=== PATIENT | male | born 1960 | race Caucasian/White ===

== ENCOUNTER 2025-08-16 12:01 | Emergency (ER) | payer BC, SELFPAY ==
[2025-08-16] VITALS (15 sets, daily range): BP systolic 155–191; BP diastolic 78–98; PULSE 57–87; RESP 14–26; TEMP 36.6; O2SAT 84–100; BMI 25.0
--- NOTE | 2025-08-16 12:07 | ED.FALL ---
HPI - Fall General Chief Complaint: Trauma Stated Complaint: Confused Time Seen by Provider: 08/16/25 12:02 History of Present Illness HPI Narrative: Patient is a 65-year-old male does drink alcohol says he only drinks 2 beers a day found today confused by neighbors. Reports that they just moved to a new house neighbors found him walking about with the obvious head injury over his left eyebrow. Patient is confused he does know his name and how old he is. He remembers his 's name. He can not remember what happened how he fell anything about the day before. Moving all extremities. No known antiplatelet or anticoagulation medication. However we do not have any record of him. Last known well unknown. Upon further questioning patient reports that he and his just moved here from [facility]. They really only lived in the state for 5 days. is out at [facility], and on her way. Related Data Allergies Allergy/AdvReac Type Severity Reaction Status Date / Time No Known Drug Allergies Allergy Verified 08/16/25 12:12 Exam Initial Vital Signs Initial Vital Signs: Vital Signs Temperature 97.8 F 08/16/25 12:01 Pulse Rate 59 L 08/16/25 12:01 Respiratory Rate 14 08/16/25 12:01 Blood Pressure 183/98 H 08/16/25 12:01 Pulse Oximetry 99 08/16/25 12:01 Oxygen Delivery Method Room Air 08/16/25 12:01 GENERAL: Alert confused 65-year-old male HEENT: Head left superior I laceration NECK: No cervical tenderness no step-off CARDIOVASCULAR: Regular rate and rhythm without murmurs, rubs or gallops. RESPIRATORY: Breath sounds equal bilaterally, no wheezes rales or rhonchi. ABDOMEN: Soft, nontender. Normoactive bowel sounds all 4 quadrants. No guarding or rebound. EXTREMITIES: Normal range of motion, no clubbing or edema. Neurovascularly intact NEUROLOGICAL: Alert and oriented x4.Normal gait and speech. Cranial nerves II through XII grossly intact. Napper Runner strength equal bilaterally no peripheral loss SKIN: Warm, dry, no laceration, no petechiae, no rashes or lesions. Procedures Laceration Repair Laceration 1: Site: face Side (If applicable): left Size (cm): 8 Description: stellate Depth: simple, single layer Local Anesthetic: lidocaine 1% and with epi Amount of anesthesia used (mL): 5 Pre-repair: wound explored, irrigated extensively and deep structures intact Skin layer closed with: nylon Skin layer suture size: 4-0 Number of sutures: 7 Technique: simple, interrupted Scores GCS Anny coma scale eye opening: Spontaneous Anny coma scale verbal response: Confused [place]ow coma scale motor response: Obey commands Anny coma scale total score: 14 NIH Stroke Scale Level of Conciousness: Alert, keenly responsive Ask month/age: Answers neither question correctly, aphasic, stuporous, coma Open/close eyes, close hand: Performs both tasks correctly Best gaze horizontal: Normal Visual eng: No visual loss Facial palsy: Normal symetrical movement Left arm drift: No drift for full 10 sec Right arm drift: No drift for full 10 sec Left leg drift: No drift for full 5 sec Right leg drift: No drift for full 5 sec Limb ataxia: Absent Sensory on face/arms/legs: Normal, no sensory loss Best language: No aphasia, normal Dysarthria: Normal Extinction or inattention: No abnormality Total NIH Stroke scale score: 2 Course Orders Ordered: ED Orders 08/16/25 12:10 Acetaminophen Stat Complete Blood Count AUTO DIFF Stat Comprehensive Metabolic Panel Stat Ethanol (ETOH) Stat Lactate (Lactic Acid) Stat PTT Partial Thromboplastin Koffi Stat Prothrombin Time INR Stat Salicylate Stat Troponin & CK Cardiac Panel Stat 08/16/25 12:15 Covid-19 + FLU A/B + RSV - PCR Stat 08/16/25 12:16 CT angio head and neck Stat CT head/brain wo con Stat EKG-12 Lead Stat 08/16/25 12:35 Ammonia (NH3) Stat 08/16/25 12:49 XR shoulder LT 2+ views Stat 08/16/25 13:25 Urine Drug Screen, Rapid Stat Discontinued Medications Diphtheria/Tetanus/Acell Pertussis (Tet,Diph,Pertuss(Acell),Vac/Pf 0.5 Ml Syringe) 0.5 ml IM .ONCE ONE Stop: 08/16/25 12:49 Last Admin: 08/16/25 12:57 Dose: 0.5 ml Documented By: Labetalol HCl (Labetalol 20 Mg/4 Ml Syringe) 10 mg IV STAT ONE Stop: 08/16/25 13:16 Last Admin: 08/16/25 13:12 Dose: 10 mg Documented By: Labetalol HCl (Labetalol 20 Mg/4 Ml Syringe) 10 mg IV NOW ONE Stop: 08/16/25 13:11 Labetalol HCl (Labetalol 20 Mg/4 Ml Syringe) 10 mg IV NOW ONE Stop: 08/16/25 13:42 Last Admin: 08/16/25 13:42 Dose: 10 mg Documented By: Lidocaine/Epinephrine (Lidocaine 1% W/Epi 10ml) 1 ml SUBCUT NOW ONE Stop: 08/16/25 12:49 Non-Formulary Medication (Labatelol) 10 mg IV STAT [facility] Vital Signs Vital signs: Vital Signs - 8 hr 08/16/25 12:01 08/16/25 12:06 08/16/25 12:06 Temperature 97.8 F Pulse Rate 59 L 61 Respiratory Rate 14 20 Blood Pressure 183/98 H 183/98 H Pulse Oximetry 99 99 Oxygen Delivery Method Room Air 08/16/25 12:33 08/16/25 13:00 08/16/25 13:05 Temperature Pulse Rate 57 L 62 Respiratory Rate 26 H Blood Pressure 191/91 H Pulse Oximetry 84 L 98 Oxygen Delivery Method 08/16/25 13:05 08/16/25 13:10 08/16/25 13:10 Temperature Pulse Rate 65 67 Respiratory Rate 20 17 Blood Pressure 185/88 H Pulse Oximetry 100 94 Oxygen Delivery Method 08/16/25 13:12 08/16/25 13:21 08/16/25 13:21 Temperature Pulse Rate 87 61 Respiratory Rate Blood Pressure 191/85 H 173/78 H Pulse Oximetry 84 L Oxygen Delivery Method 08/16/25 13:25 08/16/25 13:25 08/16/25 13:28 Temperature Pulse Rate 66 Respiratory Rate 14 Blood Pressure 177/88 H 176/83 H Pulse Oximetry Oxygen Delivery Method 08/16/25 13:28 08/16/25 13:30 08/16/25 13:31 Temperature Pulse Rate 62 64 74 Respiratory Rate 17 19 14 Blood Pressure Pulse Oximetry Oxygen Delivery Method 08/16/25 13:31 08/16/25 13:35 08/16/25 13:35 Temperature Pulse Rate 64 Respiratory Rate 25 H Blood Pressure 172/82 H 155/78 H Pulse Oximetry 98 Oxygen Delivery Method Room Air 08/16/25 13:41 08/16/25 13:42 Temperature Pulse Rate 69 86 Respiratory Rate Blood Pressure 177/85 H 178/85 H Pulse Oximetry Oxygen Delivery Method MDM - Fall Lab Data 08/16/25 12:10 08/16/25 12:10 Labs: Lab Results 08/16/25 08/16/25 08/16/25 Range/Units 12:10 12:15 12:35 WBC 6.1 (4.5-11.0) X10^3/uL RBC 4.30 L (4.5-5.9) X10^6/uL Hgb 14.1 (13.5-17.5) g/dL Hct 41.5 (41-53) % MCV 96.5 (80-100) fL MCH 32.7 (26-34) PG MCHC 33.9 (30-36) % RDW 14.0 (11.6-14.8) % Plt Count 177 (150-400) X10^3/uL Neut % (Auto) 69.7 (50-75) % Lymph % (Auto) 20.0 L (25-40) % S[place]ent % (Auto) 7.1 (3-14) % Eos % (Auto) 2.7 (2-4) % Baso % (Auto) 0.5 (0-2) % Neut # (Auto) 4200 (8761-3164) /uL Lymph # (Auto) 1200 (6345-9274) /uL Sargent # (Auto) 400 (0-900) /uL Eos # (Auto) 200 (0-450) /uL Baso # (Auto) 0 (0-100) /uL PT 11.3 (9.4-12.5) SECONDS INR 1.0 (0.9-1.3) APTT 28 (25.1-36.5) SECONDS Sodium 137 (137-145) mmol/L Potassium 3.6 (3.4-5.1) mmol/L Chloride 104 (98-107) mmol/L Carbon Dioxide 26 (22-32) mmol/L BUN 23 H (9-20) mg/dL Creatinine 0.82 (0.66-1.25) mg/dL Estimated GFR > 60 (>60) mL/min BUN/Creatinine Ratio 28.0 H (6-22) Glucose 145 H (70-99) mg/dL Lactate 0.8 (0.7-2.1) mmol/L Calcium 8.8 (8.4-10.2) mg/dL Total Bilirubin 1.1 (0.2-1.3) mg/dL AST 32 (17-59) IU/L ALT 19 (<50) IU/L Alkaline Phosphatase 63 (38-126) U/L Ammonia < 9 L (9-30) umol/L Total Creatine Kinase 114 (55-170) U/L Troponin I < 0.012 (0.01-0.034) ng/mL Total Protein 7.5 (6.3-8.2) g/dL Albumin 4.5 (3.5-5.0) g/dL Globulin 3.0 (1.7-4.1) g/dL Albumin/Globulin Ratio 1.5 (1.0-2.8) Salicylates < 1.0 (<20) mg/dL U Opiates 300ng/mL cut (Negative) Ur Oxycodone Screen (Negative) Urine Methadone Screen (Negative) Acetaminophen < 10 (10-30) ug/mL Ur Barbiturates Screen (Negative) U Tricyclic Antidepress (Negative) Ur Phencyclidine Scrn (Negative) Ur Amphetamines Screen (Negative) U Methamphetamines Scrn (Negative) Ur MDMA Scrn (Ecstasy) (Negative) U Benzodiazepines Scrn (Negative) Urine Cocaine Screen (Negative) U Marijuana (THC) Screen (Negative) Urine pH (Normal) Urine Specific [place] (Normal) Ethyl Alcohol < 10 (<10) mg/dL Ur Creatinine (Normal) SARS-CoV-2 (PCR) Negative (Negative) Influenza A (RT-PCR) Flu a negative (NEGATIVE) Influenza B (RT-PCR) Flu b negative (NEGATIVE) RSV (PCR) Negative (Negative) 08/16/25 Range/Units 13:25 WBC (4.5-11.0) X10^3/uL RBC (4.5-5.9) X10^6/uL Hgb (13.5-17.5) g/dL Hct (41-53) % MCV (80-100) fL MCH (26-34) PG MCHC (30-36) % RDW (11.6-14.8) % Plt Count (150-400) X10^3/uL Neut % (Auto) (50-75) % Lymph % (Auto) (25-40) % Sargent % (Auto) (3-14) % Eos % (Auto) (2-4) % Baso % (Auto) (0-2) % Neut # (Auto) (6189-0363) /uL Lymph # (Auto) (7112-9369) /uL Sargent # (Auto) (0-900) /uL Eos # (Auto) (0-450) /uL Baso # (Auto) (0-100) /uL PT (9.4-12.5) SECONDS INR (0.9-1.3) APTT (25.1-36.5) SECONDS Sodium (137-145) mmol/L Potassium (3.4-5.1) mmol/L Chloride (98-107) mmol/L Carbon Dioxide (22-32) mmol/L BUN (9-20) mg/dL Creatinine (0.66-1.25) mg/dL Estimated GFR (>60) mL/min BUN/Creatinine Ratio (6-22) Glucose (70-99) mg/dL Lactate (0.7-2.1) mmol/L Calcium (8.4-10.2) mg/dL Total Bilirubin (0.2-1.3) mg/dL AST (17-59) IU/L ALT (<50) IU/L Alkaline Phosphatase (38-126) U/L Ammonia (9-30) umol/L Total Creatine Kinase (55-170) U/L Troponin I (0.01-0.034) ng/mL Total Protein (6.3-8.2) g/dL Albumin (3.5-5.0) g/dL Globulin (1.7-4.1) g/dL Albumin/Globulin Ratio (1.0-2.8) Salicylates (<20) mg/dL U Opiates 300ng/mL cut Negative (Negative) Ur Oxycodone Screen Negative (Negative) Urine Methadone Screen Negative (Negative) Acetaminophen (10-30) ug/mL Ur Barbiturates Screen Negative (Negative) U Tricyclic Antidepress Negative (Negative) Ur Phencyclidine Scrn Negative (Negative) Ur Amphetamines Screen Negative (Negative) U Methamphetamines Scrn Negative (Negative) Ur MDMA Scrn (Ecstasy) Negative (Negative) U Benzodiazepines Scrn Negative (Negative) Urine Cocaine Screen Negative (Negative) U Marijuana (THC) Screen Negative (Negative) Urine pH Normal (Normal) Urine Specific [place] Normal (Normal) Ethyl Alcohol (<10) mg/dL Ur Creatinine Normal (Normal) SARS-CoV-2 (PCR) (Negative) Influenza A (RT-PCR) (NEGATIVE) Influenza B (RT-PCR) (NEGATIVE) RSV (PCR) (Negative) Imaging Data CT scan - head: Radiologist's Impression: PROCEDURE: CT HEAD/BRAIN WO CON INDICATIONS: fall TECHNIQUE: Noncontrast 4.5 mm thick angled axial sections acquired from the foramen magnum to the vertex, with coronal and sagittal reformats. For radiation dose reduction, the following was used: automated exposure control, adjustment of mA and/or kV according to patient size. COMPARISON: [facility], CT, CT ANGIO HEAD AND NECK, 08/16/2025, 12:24. FINDINGS: Image quality: Diagnostic. CSF spaces: Basal cisterns are patent. No extra-axial fluid collections. Ventricles are normal in size and shape. Brain: Scattered subarachnoid hemorrhage noted involving the bilateral frontal lobes. Small amount of intraventricular hemorrhage noted as well Skull and face: Calvarium and visualized facial bones are intact, without suspicious lesions. Sinuses: Visualized sinuses and mastoids are clear. IMPRESSION: Minimal scattered bifrontal subarachnoid hemorrhage associated with trace intraventricular hemorrhage. No mass effect or midline shift. Note: Critical results were discussed with Dr. Shetty at 11:46 AM [place] time on 08/16/25 Approved by: Sg Titus M.D. on 08/16/2025 at 11:50 CTA - brain/neck: Radiologist's Impression: PROCEDURE: CT ANGIO HEAD AND NECK INDICATIONS: confused word trouble TECHNIQUE: After the administration of intravenous contrast, 1 mm thick sections acquired from the aortic arch through the [place] of [place]. 3-dimensional jxeoszn-wzniumvcl-eaxqhsauod (MIP) and/or volume rendering reformats were acquired of the central intracranial vasculature and neck separately. For radiation dose reduction, the following was used: automated exposure control, adjustment of mA and/or kV according to patient size. COMPARISON: None. FINDINGS: Image quality: Diagnostic. Cerebral CT Angiogram: Internal carotid arteries: No acute findings. Intracranial ICA are patent with no significant stenosis. No occlusion. No aneurysm. Anterior cerebral arteries: Unremarkable. No significant stenosis. No occlusion. No aneurysm. Middle cerebral arteries: Unremarkable. No significant stenosis. No occlusion. No aneurysm. Posterior cerebral arteries: Unremarkable. No significant stenosis. No occlusion. No aneurysm. Basilar artery: Unremarkable. No significant stenosis. No occlusion. No aneurysm. Vertebral arteries: Unremarkable as visualized. Dural venous sinuses: Unremarkable given phase of enhancement. Other: Bilateral maxillary sinus mucosal thickening and retention cyst Neck CT Angiogram: Internal carotid arteries: Unremarkable. No significant stenosis. No dissection or occlusion. Common carotid arteries: Unremarkable. No significant stenosis. No dissection or occlusion. External carotid arteries: Unremarkable. No occlusion. Vertebral arteries: Unremarkable. No significant stenosis. No dissection or occlusion. Aortic Arch and Mediastinum: Partially visualized aortic arch unremarkable without evidence of aneurysm. Origins of the great vessels unremarkable. Other: Arterial phase soft tissues of the neck and chest are unremarkable. IMPRESSION: Trace atherosclerotic plaque both proximal ICA without stenosis. Unremarkable intracranial CT angiogram without large vessel occlusion, aneurysm or vascular malformation. Bilateral maxillary mucosal sinus disease Any quantitative measurements of stenosis were performed using NASCET criteria. Approved by: gS Titus M.D. on 08/16/2025 at 11:53 ECG Data Attestation: I personally reviewed and interpreted this ECG as follows: Prior ECG tracings: not available for review Interpretation: Normal sinus rhythm rate 58 CT interval 170 QRS [address] changes no T-wave inversion MDM Narrative Medical decision making narrative: MDM CC: Confused fall Complicating co-morbidities: Unknown Data collected from: Patient EMS Medical records reviewed: None Differential considered: Intracranial hemorrhage, CVA, ACS, sepsis, COVID, Toxicology hypoglycemia seizure Exam documented above, pertinent findings include: 8 cm laceration noted above left eyebrow extraocular muscles are intact no evidence of entrapment, no evidence of globe rupture, moving all extremities NIH is 2 he is mildly confused, left shoulder does not show any deficits or step-off of clavicle Lab Test results independently reviewed as above. Pertinent findings: CBC no leukocytosis no anemia platelets 177 INR 1.0 PTT 28 Electrolytes within normal limits creatinine 0.82 glucose is 145 Lactate 0.8 Ammonia negative Bilirubin liver enzymes within normal limits CPK 114 no evidence of rhabdomyolysis Troponin negative Alcohol acetaminophen and salicylates all undetectable COVID flu RSV negative Independently reviewed EKG as above Sinus rhythm however he does go into a trigeminy Imaging studies independently reviewed: Head CT noncontrast minimal scattered bifrontal subarachnoid hemorrhage associated with trace intraventricular hemorrhage no mass effect CT angio trace atherosclerotic plaque no aneurysm or large vessel occlusion Left shoulder Consultations: [address] Dr. [place] [facility] attending [facility] accepts patient Treatments: Labetalol 10 mg x 2 Suture left eyebrow Re-evaluations: Patient becoming more awake remembers that his was leaving to go shopping she dropped him off at the house. Does not remember much more. Discussion: Patient 65-year-old male presenting today as fall confusion modified trauma. He is found to have scattered bifrontal subarachnoid hemorrhage, no known antiplatelet anticoagulation medication at this time. Blood pressure is under to be elevated systolic was up to as high as 190 he is given 2 doses of labetalol does start to come down. He was also in trigeminy. I have attempted to call I left a voicemail on her phone to notify her. Patient agrees to be transferred. came to ED after patient was in helicopter I have explained his condition to her. She is thankful and will call him later. Critical Care Time Critical Care Time Critical Care Time: Yes Total Critical Care Time: 35 Attestation: The high probability of a clinically significant, sudden or life threatening deterioration of the neurovascular system(s) required my full and direct attention, intervention and personal management. The aggregate critical care time was [35] minutes. This time is in addition to time spent performing reported procedures but includes the following: [x] Data Review and interpretation [x] Patient assessment and monitoring of vital signs [x] Documentation [x] Medication orders and management Discharge Plan Departure Patient Disposition: [facility] Clinical Impression: Subarachnoid hemorrhage
--- NOTE | 2025-08-16 12:16 | EKG_ITS ---
[address] [address] Test Date: 2025-08-16 Pat Name: Spencer Freitas Department: Room: Gender: Male Manager [employer]: YAHAIRA : 1960 Requested By: Order Number: [id number] Reading MD: Piero Guardado MD Measurements Intervals Mitchell Rate: 58 P: 73 PA: 170 QRS: 49 QRSD: 96 T: 59 QT: 426 QTc: 418 Interpretive Statements Sinus bradycardia Minimal voltage criteria for LVH, may be normal variant ( Sokolow-Bernal ) Electronically Signed On 08-17-2025 14:43:50 PDT by Piero Guardado MD
--- NOTE | 2025-08-16 12:16 | DI.CT.S_ITS ---
PROCEDURE: CT HEAD/BRAIN WO CON INDICATIONS: fall TECHNIQUE: Noncontrast 4.5 mm thick angled axial sections acquired from the foramen magnum to the vertex, with coronal and sagittal reformats. For radiation dose reduction, the following was used: automated exposure control, adjustment of mA and/or kV according to patient size. COMPARISON: [facility], CT, CT ANGIO HEAD AND NECK, 08/16/2025, 12:24. FINDINGS: Image quality: Diagnostic. CSF spaces: Basal cisterns are patent. No extra-axial fluid collections. Ventricles are normal in size and shape. Brain: Scattered subarachnoid hemorrhage noted involving the bilateral frontal lobes. Small amount of intraventricular hemorrhage noted as well Skull and face: Calvarium and visualized facial bones are intact, without suspicious lesions. Sinuses: Visualized sinuses and mastoids are clear. IMPRESSION: Minimal scattered bifrontal subarachnoid hemorrhage associated with trace intraventricular hemorrhage. No mass effect or midline shift. Note: Critical results were discussed with Dr. Shetty at 11:46 AM [place] time on 08/16/25 Approved by: Sg Titus M.D. on 08/16/2025 at 11:50
--- NOTE | 2025-08-16 12:16 | DI.CT.S_ITS ---
PROCEDURE: CT ANGIO HEAD AND NECK INDICATIONS: confused word trouble TECHNIQUE: After the administration of intravenous contrast, 1 mm thick sections acquired from the aortic arch through the [place] of Ch[place]z. 3-dimensional sesfcjp-lzlwwqedb-dkvfdwlntl (MIP) and/or volume rendering reformats were acquired of the central intracranial vasculature and neck separately. For radiation dose reduction, the following was used: automated exposure control, adjustment of mA and/or kV according to patient size. COMPARISON: None. FINDINGS: Image quality: Diagnostic. Cerebral CT Angiogram: Internal carotid arteries: No acute findings. Intracranial ICA are patent with no significant stenosis. No occlusion. No aneurysm. Anterior cerebral arteries: Unremarkable. No significant stenosis. No occlusion. No aneurysm. Middle cerebral arteries: Unremarkable. No significant stenosis. No occlusion. No aneurysm. Posterior cerebral arteries: Unremarkable. No significant stenosis. No occlusion. No aneurysm. Basilar artery: Unremarkable. No significant stenosis. No occlusion. No aneurysm. Vertebral arteries: Unremarkable as visualized. Dural venous sinuses: Unremarkable given phase of enhancement. Other: Bilateral maxillary sinus mucosal thickening and retention cyst Neck CT Angiogram: Internal carotid arteries: Unremarkable. No significant stenosis. No dissection or occlusion. Common carotid arteries: Unremarkable. No significant stenosis. No dissection or occlusion. External carotid arteries: Unremarkable. No occlusion. Vertebral arteries: Unremarkable. No significant stenosis. No dissection or occlusion. Aortic Arch and Mediastinum: Partially visualized aortic arch unremarkable without evidence of aneurysm. Origins of the great vessels unremarkable. Other: Arterial phase soft tissues of the neck and chest are unremarkable. IMPRESSION: Trace atherosclerotic plaque both proximal ICA without stenosis. Unremarkable intracranial CT angiogram without large vessel occlusion, aneurysm or vascular malformation. Bilateral maxillary mucosal sinus disease Any quantitative measurements of stenosis were performed using NASCET criteria. Approved by: Sg Titus M.D. on 08/16/2025 at 11:53
[2025-08-16 12:27] LABS: Add Manual Diff / Slide Review NO; Hematocrit 41.5 % (41-53); Hemoglobin 14.1 g/dL (13.5-17.5); Lymphocytes Absolute Auto 1200 /uL (1100-4500); Mean Corpuscular HGB Conc 33.9 % (30-36); Mean Corpuscular Hemoglobin 32.7 PG (26-34); Mean Corpuscular Volume 96.5 fL (80-100); Platelet Count 177 X10^3/uL (150-400)
--- NOTE | 2025-08-16 12:28 | PC.NURSE ---
Pt arrives to ER for evaluation of confusion Head is wrapped and and has small amount of sanguinous drainage to left forehead. Bruising and swelling noted to left eye.
[2025-08-16 12:34] LABS: INR 1.0 (0.9-1.3); Prothrombin Time 11.3 SECONDS (9.4-12.5)
[2025-08-16 12:37] LABS: PTT Partial Thromboplastin Tim 28 SECONDS (25.1-36.5)
[2025-08-16 12:39] LABS: Acetaminophen < 10 ug/mL (10-30); Alanine Aminotransferase 19 IU/L (<50); Albumin 4.5 g/dL (3.5-5.0); Albumin Globulin Ratio 1.5 (1.0-2.8); Alkaline Phosphatase 63 U/L (38-126); Blood Urea Nitrogen 23 mg/dL (9-20); Calcium 8.8 mg/dL (8.4-10.2); Carbon Dioxide 26 mmol/L (22-32); Chloride 104 mmol/L (98-107); Creatine Kinase 114 U/L (55-170); Estimated Glomerular Filt Rate > 60 mL/min (>60); Ethanol (ETOH) < 10 mg/dL (<10); Globulin 3.0 g/dL (1.7-4.1); Glucose 145 mg/dL (70-99); HEMOLYSIS < 15 (0-50); Lactate (Lactic Acid) 0.8 mmol/L (0.7-2.1); Potassium 3.6 mmol/L (3.4-5.1); Salicylate < 1.0 mg/dL (<20); Sodium 137 mmol/L (137-145); Total Protein 7.5 g/dL (6.3-8.2)
--- NOTE | 2025-08-16 12:49 | DI.RAD.S_ITS ---
PROCEDURE: XR SHOULDER LT MIN 2V INDICATIONS: pain TECHNIQUE: 3 views of the shoulder were acquired. COMPARISON: None. FINDINGS: Bones: No fractures or dislocations. No suspicious bony lesions. Visualized ribs appear intact. Soft tissues: No suspicious soft tissue calcifications. IMPRESSION: No acute bony abnormality. Approved by: Sg Titus M.D. on 08/16/2025 at 12:58
[2025-08-16 12:50] LABS: Troponin I < 0.012 ng/mL (0.01-0.034)
[2025-08-16 12:54] LABS: Ammonia (NH3) < 9 umol/L (9-30)
[2025-08-16] MEDS: TET,DIPH,PERTUSS(ACELL),VAC/PF 0.5 ML SYRINGE IM (12:57)
[2025-08-16 13:02] LABS: Influenza A - CEPHEID Flu A NEGATIVE (NEGATIVE); Influenza B - CEPHEID Flu B NEGATIVE (NEGATIVE)
[2025-08-16 13:06] LABS: COVID-19 CEPHEID 4-PLEX PCR Negative (Negative)
[2025-08-16] MEDS: LABETALOL 20 MG/4 ML SYRINGE 10 MG IV ×2 (13:12→13:42)
--- NOTE | 2025-08-16 13:35 | PC.NURSE ---
Debbie called to alert of pt condition. on the way to hospital. Airlift en route.
[2025-08-16 13:37] LABS: Ur Creatinine Normal (Normal); Ur Specific Gravity Normal (Normal); Urine MDMA Negative (Negative); Urine Methamphetamines Negative (Negative); Urine THC Negative (Negative); Urine Tricyclic Antidepressant Negative (Negative); Urine pH Normal (Normal)
--- NOTE | 2025-08-16 13:42 | PC.NURSE ---
This [employer] was [facility] to [facility] for ED [place] [facility]. [facility] accepted at 1305 with an ETA 1330. EMTALA and Medical Necessity were both signed by provider and patient. Patient was assisted in signing up for [employer] insurance via patients cell phone. Patients Imaging reports, lab results, EKG, and ED provider note was printed and handed to the [facility] team upon their arrival.
== END 2025-08-16 13:52 | disposition short-term general hospital (02) ==
PROVIDERS: Emergency Provider Emergency Medicine
DX: S06.6X0A Traumatic subarachnoid hemorrhage without loss of consciousness, initial encounter (principal); S01.81XA Laceration without foreign body of other part of head, initial encounter; R41.0 Disorientation, unspecified; W19.XXXA Unspecified fall, initial encounter; R40.2412 Glasgow coma scale score 13-15, at arrival to emergency department; R29.702 NIHSS score 2; Z23 Encounter for immunization
CPT/HCPCS: 12015; 36415; 70450; 70496; 70498; 73030; 80053; 80305; 80320; 80329; 82140; 82550; 83605; 84484; 85025; 85610; 85730; 87637; 90471; 93005; 93010; 96374; 96376; 99285; 99291; 90715; G0390; G0480; Q9967

== ENCOUNTER → 2025-09-09 10:48 | Outpatient (CLI) | payer BC, MEDICARE, SELFPAY ==
[2025-09-09 11:39] LABS: Hemoglobin A1C% w Est Avg Glu 6.1 % (4.0-6.0)
[2025-09-09 12:06] LABS: Blood Urea Nitrogen 21 mg/dL (9-20); Calcium 9.5 mg/dL (8.4-10.2); Carbon Dioxide 31 mmol/L (22-32); Chloride 102 mmol/L (98-107); Estimated Glomerular Filt Rate > 60 mL/min (>60); Glucose 115 mg/dL (70-99); HEMOLYSIS < 15 (0-50); Potassium 4.2 mmol/L (3.4-5.1); Sodium 137 mmol/L (137-145)
== END ==
PROVIDERS: PCP Family Medicine; Referring Provider Family Medicine; Visit Provider Family Medicine
DX: I10 Essential (primary) hypertension (principal); Z13.1 Encounter for screening for diabetes mellitus
CPT/HCPCS: 36415; 80048; 83036

== ENCOUNTER → 2025-09-09 14:36 | Outpatient (CLI) | payer BC, MEDICARE, SELFPAY ==
--- NOTE | 2025-09-09 14:37 | DI.ECHO.S_ITS ---
[place] [facility] : : [id number] : [place] : : [id number] : : Phone: [phone] Echocardiogram Report + + :Name: HILARY HAGEN Study Date: 09/09/2025 Height: 75 in : :[facility] ReadingLocation: Weight: 180 lb : : Gender: Male BSA: 2.1 m2 : :: 1960 Age: 65 yrs BP: 107/73 mmHg: :Reason For Study: VASCULAR DISEASE : :Ordering Physician: SHAILESH, : :LOGAN Performed By: Debbie Payton : :Referring: LOGAN CASH : + + Interpretation Summary 1) Normal left ventricular thickness, size, wall motion, and systolic function (EF 55-60%). 2) Normal right ventricular size and function. 3) Aortic valve is calcific but no stenosis or regurgitation are present. 4) The aortic root is mildly dilated at 4.2cm. 5) No prior Echo available for comparison. Procedure: A two-dimensional transthoracic echocardiogram with color flow and Doppler was performed. The study quality was technically adequate. There is no prior echocardiogram noted for this patient. The heart rate ranged between 68-71 bpm during the study. Left Ventricle: The left ventricle is normal in size and wall thickness. The ejection fraction is estimated to be 55-60%. Left ventricular systolic function appears normal without focal wall motion abnormalities. Normal diastolic function. Right Ventricle: The right ventricle grossly appears normal in size with probable normal systolic function. Atria: The left atrial size is normal. Right atrial size is normal. The interatrial septum grossly appears intact with no obvious evidence for an atrial septal defect. Mitral Valve: The mitral valve is grossly normal. There is trace mitral regurgitation. Aortic Valve: The aortic valve is trileaflet. The aortic valve is moderately calcified. There is moderately reduced leaflet mobility. The aortic valve area is 2.6 centimeters squared by planimetry. The calculated aortic valve area is 2.6 cm2. The peak aortic velocity is 1.9 m/sec. The aortic valve mean gradient is 8 mmHg. No aortic regurgitation is present. Tricuspid Valve: The tricuspid valve leaflets are thin and pliable. There is a trace or physiologic amount of tricuspid regurgitation. The right ventricular systolic pressure is estimated to be at least 29 mmHg based on an estimated right atrial pressure of 3 mm Hg. Pulmonic Valve: The pulmonic valve is not well visualized. There is a trace or physiologic amount of pulmonic regurgitation. Great Vessels: The aortic root is mildly dilated. The ascending aorta could not be visualized. The aortic arch is normal in size. The IVC is of normal diameter and collapses greater than 50% with a sniff. This suggests a low right atrial pressure of 3 mm Hg. Pericardium/ Pleura There is no pericardial effusion. There is no pleural effusion. MMode/2D Measurements & Calculations LVIDd: 4.6 cm LVOT diam: 2.6 cm LVIDs: 3.2 cm Ao root diam: 4.2 cm FS: 31.5 % Ao Arch Diam (Prox Trans): 2.8 cm EPSS: 0.66 cm IVSd: 0.95 cm LVPWd: 0.94 cm LV de oliveira. diameter/BSA (cm/m^2): 2.2 LV sys. diameter/BSA (cm/m^2): 1.5 LA A2 area: 19.3 cm2 RA long axis: 5.2 cm LA A4 area: 23.7 cm2 RA area: 19.6 cm2 LA length (vol): 5.4 cm RA vol: 62.1 ml LA vol: 71.6 ml RA : 29.6 ml/m2 LA vol index: 34.1 ml/m2 IVC diam: 1.8 cm RVD1 (basal): 3.8 cm TAPSE: 3.4 cm Doppler Measurements & Calculations Ao V2 max: 185.9 cm/sec LVOT Max Jarrod: 82.2 cm/sec Ao V2 mean: 133.7 cm/sec LV V1 max P.7 mmHg Ao max P.8 mmHg LV V1 VTI: 16.5 cm Ao mean P.7 mmHg CONSTANCE(I,D): 2.6 cm2 Ao V2 VTI: 34.0 cm CONSTANCE(V,D): 2.4 cm2 sev ratio: 0.49 CONSTANCE indexed to BSA (cm^2/m^2): 1.3 MV E max jarrod: 59.0 cm/sec TR max jarrod: 254.1 cm/sec MV A max jarrod: 97.3 cm/sec TR max P.8 mmHg MV E/A: 0.61 PA V2 max: 57.0 cm/sec Med Peak E' Jarrod: 4.9 cm/sec PA V2 mean: 37.6 cm/sec E/E' med: 12.0 PA mean P.66 mmHg Lat Peak E' Jarrod: 5.5 cm/sec PA pr(Accel): 23.8 mmHg E/E' lat: 10.8 E/e' average: 11.4 MV dec time: 0.28 sec SV(LVOT): 89.5 ml Reading Physician:05:17 PM
--- NOTE | 2025-09-09 15:45 | DI.MRI.S_ITS ---
PROCEDURE: MR ANGIO HEAD WO CON INDICATIONS: SAH uncertain cause TECHNIQUE: Noncontrast axial 3-D [id number] MR angiogram, with 3-dimensional maximum intensity projection (MIP) reformats of the internal carotid arteries and posterior circulation then performed. COMPARISON: Merged With [facility], CT, CT ANGIO HEAD AND NECK, 08/16/2025, 12:24. [facility], CT, CT HEAD WITHOUT CONTRAST, 08/18/2025, 19:42. FINDINGS: Image quality: Diagnostic, with note made of motion artifact. Anterior circulation: Intracranial internal carotid arteries are normal in size and flow. There is a diminutive left A1 segment, with a corresponding robust right A1 segment. This is considered to be a normal developmental variant of the [place], of typically no clinical consequence. The flow within the paired anterior cerebral arteries is otherwise normal and symmetric. The flow within the middle cerebral arteries is normal and symmetric. The anterior communicating artery is seen. No aneurysms are seen. Posterior circulation: Visualized portions of the vertebral arteries demonstrate normal caliber, and join to form a normal appearing basilar artery. There is a prominent left posterior communicating artery seen, with an accompanying diminutive left P1 segment. This is attributed to a type origin of the right posterior cerebral artery, which is considered to be a normal developmental variant of typically no clinical consequence. The flow within the posterior cerebral arteries is normal and symmetric. No aneurysms are seen. IMPRESSION: No aneurysm is seen. Additional findings: [id number] developmental anomalies. Dictated by: Horacio Hopkins M.D. on 09/09/2025 at 18:02 Approved by: Horacio Hopkins M.D. on 09/09/2025 at 18:04
== END ==
LOC: ECHO 14:36
PROVIDERS: PCP Family Medicine; Referring Provider Family Medicine; Visit Provider Family Medicine
DX: Z86.79 Personal history of other diseases of the circulatory system (principal); Z68.22 Body mass index [BMI] 22.0-22.9, adult; Z87.898 Personal history of other specified conditions; F07.81 Postconcussional syndrome; R73.09 Other abnormal glucose; I10 Essential (primary) hypertension; H53.9 Unspecified visual disturbance; R41.3 Other amnesia; Z13.1 Encounter for screening for diabetes mellitus; I70.0 Atherosclerosis of aorta
CPT/HCPCS: 36415; 70544; 80048; 83036; 93306

== ENCOUNTER → 2025-09-25 19:37 | Outpatient (CLI) | payer BC, MEDICARE, SELFPAY ==
--- NOTE | 2025-09-25 19:41 | DI.MRI.S_ITS ---
PROCEDURE: MR HEAD/BRAIN WO/W CON INDICATIONS: confusion, memory probleys, altered LOC not improving 38sday TECHNIQUE: Noncontrast axial T1 spin echo, axial T2 fast spin echo, sagittal and axial FLAIR, coronal T2 fast spin echo, axial gradient echo, axial diffusion and ADC through the brain. After the administration of contrast, axial and coronal and sagittal 3D VIBE or T1 spin echo with fat saturation through the brain. COMPARISON: None. FINDINGS: Image quality: Excellent. CSF Spaces: Basal cisterns are patent. No extra-axial fluid collections. Ventricles are normal in size and shape. Brain: No midline shift. No intracranial bleeds or masses. No abnormal intracranial enhancement. The brainstem appears normal. Diffusion-weighted images demonstrate no acute infarct. No chronic ischemic insults. Normal intravascular flow voids are present. Scattered foci of T2/stir signal hyperintensity in the white matter often seen with small vessel ischemic disease. Skull and face: Calvarial marrow is normal in signal. Orbits appear normal. Sinuses: Mucous retention cyst in the right maxillary sinus. IMPRESSION: No acute abnormality. Small foci of white matter signal abnormality most likely associated with microvascular ischemic disease. Dictated by: David Titus M.D. on 09/25/2025 at 20:35 Approved by: David Titus M.D. on 09/25/2025 at 20:46
== END ==
LOC: MRI 19:39
PROVIDERS: PCP Family Medicine; Referring Provider Family Medicine; Visit Provider Family Medicine
DX: R41.0 Disorientation, unspecified (principal); R41.82 Altered mental status, unspecified; R41.3 Other amnesia; J34.1 Cyst and mucocele of nose and nasal sinus; F07.81 Postconcussional syndrome; Z86.79 Personal history of other diseases of the circulatory system
CPT/HCPCS: 70553; A9579

== ENCOUNTER → 2025-11-17 12:45 | Outpatient (CLI) | payer BC, MEDICARE, SELFPAY ==
[2025-11-17 15:08] LABS: TSH w/ Reflex to FT4 0.56 uIU/mL (0.47-4.68)
[2025-11-17 15:27] LABS: Vitamin B12 482 pg/mL (239-931)
== END ==
PROVIDERS: PCP Family Medicine; Referring Provider Family Medicine; Visit Provider Family Medicine
DX: I10 Essential (primary) hypertension (principal); R41.3 Other amnesia; H53.9 Unspecified visual disturbance; F07.81 Postconcussional syndrome; Z86.79 Personal history of other diseases of the circulatory system; Z87.898 Personal history of other specified conditions; Z82.0 Family history of epilepsy and other diseases of the nervous system; Z56.6 Other physical and mental strain related to work
CPT/HCPCS: 36415; 82607; 84443